=== PATIENT | female | born 1960 | race Caucasian/White ===

== ENCOUNTER 2024-01-19 12:13 | Emergency (ER) | payer OTHER, SELFPAY ==
[2024-01-19 12:38] VITALS: BP 112/82
[2024-01-19] MEDS: ADENOCARD 6 MG IV (12:41)
--- NOTE | 2024-01-19 12:44 | ED.GENMED ---
History of Present Illness
General
Chief Complaint: Heart Rate Problem
Source: patient
Exam Limitations: none
Time Seen by Provider: 01/19/24 12:30
Nursing documentation reviewed up to this point in time: agreed with
History of Present Illness
History of Present Illness:
63-year-old female with a past medical history of lung cancer, PE on Eliquis, SVT who presents to the emergency department for evaluation of palpitations. Patient reports that she was driving to lunch with her mother when she had abrupt onset of
palpitations/racing heart. She says that this occurred at around 11:30 AM. She drove herself to the emergency room to be evaluated. She does not have any chest pain. She denies any shortness of breath. She denies any other complaints. She says
this is identical to symptoms she had with prior episodes of SVT. Of note she was recently admitted at [facility]�was admitted for total of 1 week she says and discharged 2 weeks ago; this admission was for pulmonary embolism and she was
ultimately discharged on Eliquis and has been compliant. She reports that one of her presenting issues for this recent hospitalization was tachycardia and SVT. Today however she does not have any shortness of breath or chest pain, as above. Her
normal child welfare counselor is through the [facility] system.
Past History
Past History
ED Past Medical History: Cancer
ED Past Surgical History: Orthopedic and Other
Social History
Tobacco: Non-smoker
Alcohol: None
Drug: None
Personal: Single
Living: alone
Review of Systems
Review of Systems
All Other Systems: ROS reviewed and negative except as documented in HPI and ROS
Constitutional: Denies fever
Respiratory: Denies trouble breathing
Cardiac: Reports palpitations; Denies chest pain or syncope
ABD/GI: Denies abdominal pain, nausea or vomiting
: Denies flank pain
Musculoskeletal: Denies edema, neck pain or back pain
Neurological: Denies dizzy or headache
Phy Exam
Physical Exam
Physical Exam:
General: Awake, alert, oriented x3; anxious but nontoxic
Head: Normocephalic, atraumatic
Eyes: Conjunctiva normal
Throat: Airway intact, handling secretions
Neck: Trachea midline, no JVD
Lungs: Clear to auscultation bilaterally, no wheezing, rales, rhonchi
Heart: Tachycardia with ostensibly regular rhythm, no murmurs, gallops, or rubs appreciated within the limits of significant tachycardia
Abd: Soft, non distended, nontender
Neuro: No gross deficits
Skin: no rash
Extremities: No edema in extremities, equal pulses in all extremities
Scores
Heart Failure Risk
Heart Failure Risk Score: Not Applicable
Heart Score for Chest Pain Patients
STEMI patient?: Not applicable
Withdrawal Assessment of Alcohol
Withdrawal Assessment Completed?: Not applicable
Course
Orders/Labs/Results
Orders:
Orders
01/19/24
Electrocardiogram (*1) Stat
Reason for Study: Chest Pain
Comment: DONE NO ORDER ENTERED
01/19/24 12:14
Electrocardiogram (*1) Urgent
Reason for Study: Chest Pain
01/19/24 12:15
EKG- Treatment ONCE
01/19/24 12:31
Adenosine [Adenocard] 6 mg IV NOW STA
01/19/24 12:39
Complete Blood Count/With Diff Urgent
Comprehensive Metabolic Panel Urgent
Magnesium Urgent
01/19/24 13:21
Electrocardiogram (*1) Urgent
Reason for Study: Bradycardia / Tachycardia
EKG- Treatment ONCE
Abnormal Lab Results
01/19/24
12:39
MCHC 31.4 L g/dL
(33.0-37.0)
RDW 16.2 H %
(11.5-14.5)
Monocytes % 10.3 H %
(1.7-9.3)
Glucose 107 H mg/dl
(70-99)
Alkaline Phosphatase 144 H U/L
(38-126)
Albumin 3.2 L g/dl
(3.5-5.0)
01/19/24 12:39
01/19/24 12:39
Vital Signs
Initial and Last Documented VS:
Initial Vital Signs
Temp Pulse Resp Pulse Ox
36.9 C 180 18 98
01/19/24 12:28 01/19/24 12:28 01/19/24 12:28 01/19/24 12:28
Last Documented Vital Signs
Temp Pulse Resp BP Pulse Ox
36.9 C 80 18 98/59 98
01/19/24 12:28 01/19/24 14:31 01/19/24 14:31 01/19/24 14:31 01/19/24 14:31
MDM/Problems Addressed
Differential Diagnosis Includes:
SVT
MDM/Problems Addressed:
63-year-old female presents for evaluation of abrupt onset tachycardia consistent with her prior episodes of SVT. Vitals significant for tachycardia but otherwise normal; EKG on arrival confirms SVT with a heart rate in 180s. Exam as above. She
was immediately brought back to a room, placed on awake overnight monitor. IV access was established and labs were sent off including a CBC and a CMP, magnesium level. She was given 6 mg of IV adenosine and successfully converted to sinus rhythm. Still
mildly tachycardic after converting to sinus rhythm and EKG after adenosine did show QT prolongation, electrolytes pending and will repeat EKG as heart rate improves. Continue to monitor very closely.
Labs reviewed: CBC and CMP unremarkable. Repeat EKG shows sinus rhythm in the 80s, QTc normalized. Patient has been asymptomatic since receiving adenosine. Blood pressure somewhat soft but patient says that she always sits with a blood pressure
in the 90s�this is apparently her baseline. She is requesting discharge�she feels well. We did monitor for 90 minutes status post adenosine and she has maintained sinus rhythm persistently and has been persistently asymptomatic. Stable for
discharge at this point. She will follow-up with her child welfare counselor as an outpatient. Spoke about return precautions all questions answered.
Chronic conditions affecting care:
SVT
*Pulse Oximetry
Patient hypoxic: no
*EKG
Interpreted by ED Provider?: Yes
Heart Rate: 183
Rate: tachycardiac
Rhythm: SVT
[place]: normal axis
Interval: normal interval
QRS Pattern: normal QRS
Ischemia: non-specific ST changes
*Critical Care Note
Total Time (30-74mins, 75-104mins- exclusive of procedures): 30
comment:
Critical care statement: A total of 30 minutes of critical care time was provided for this patient. This includes management of unstable vital signs, evaluation of the patient at bedside, frequent reassessment, discussion with
consultants/hospitalist, and review of pertinent medical records. This time was separate from time utilized to perform any aforementioned documented procedures
Data Reviewed
Source: patient
ED Attending Note
-
Portions of this chart may have been created with voice recognition software.� Occasional wrong word or��sound alike� substitutions may have occurred due to the inherent limitations of voice recognition software.
Discharge Plan
Departure
Patient Disposition: Home (Routine Discharge)
Date of Disposition: 01/19/24
Time of Disposition: 14:08
Patient with high blood pressure during this ER visit?: No
Discharge Problem:
SVT (supraventricular tachycardia)
Instructions: Supraventricular tachycardia (SVT)
Prescriptions:
No Action
diphenhydramine HCl [Benadryl] 25 mg capsule
25 mg PO TID PRN (Reason: allergic reaction) Qty: 20 0RF
famotidine [Pepcid] 20 mg tablet
20 mg PO BID Qty: 20 0RF
prednisone 10 mg Tablet
See Rx Instructions .ROUTE .COMPLEX Qty: 30 0RF
Rx Instructions:
Take By Mouth:
40 mg daily x3 days, 30 mg daily x3 days,
20 mg daily x3 days, 10 mg daily x3 days.
Referrals:
Bharath Pandey DO [Family Provider] - Call in 1-3 days for appt
Activity Restrictions/Additional Instructions:
Thank you for visiting the Emergency Department at [facility].
1. Please schedule a follow up appointment as directed. Call first thing tomorrow morning to make an appointment.
2. If indicated, please take your medications as instructed and indicated on discharge paperwork.
3. If any of your symptoms do not improve, or persist, or become more severe within 6-12 hours, please return to the emergency department for further care.
4. Please return to the emergency department if you develop a headache, neck pain/stiffness, fever greater than 100.4F, chest pain, shortness of breath, persistent nausea, vomiting, slurred speech, difficulty walking, numbness/tingling, weakness,
signs of infection or any other symptoms that are worrisome to you.
Please call [phone] if you have any questions.
Interventions
Interventions:
*Risk Screen - Suicide Last Done: 01/19/24 12:28
*Neglect/Abuse Screening Last Done: 01/19/24 12:28
ED- Fall Risk Assessment Last Done: 01/19/24 12:37
ED- Cardiac Assessment Last Done: 01/19/24 12:37
ED- Pulmonary Assessment Last Done: 01/19/24 12:37
Discharge Date and Time
Print Language: AZERI
[2024-01-19 12:50] LABS: % Basophils 0.4 % (0-2); % Eosinophils 1.3 % (0-6); % Immature Granulocytes 0.2 % (0-0.5); % Lymphocytes 26.3 % (20.5-51.1); % Monocytes 10.3 % (1.7-9.3); % Neutrophils 61.5 % (42.2-75.2); Absolute Eosinophils 0.1 10^3/uL (0-0.7); Absolute Lymphocytes 1.5 10^3/uL (1.2-3.4); Absolute Monocytes 0.6 10^3/uL (0.1-0.6); Absolute Neutrophils 3.4 10^3/uL (1.4-6.5); Hematocrit 40.8 % (37.0-47.0); Hemoglobin 12.8 g/dL (12.0-16.0); Mean Corp Hgb Conc. 31.4 g/dL (33.0-37.0); Mean Corpuscular Hgb 27.1 pg (27.0-31.0); Mean Corpuscular Volume 86.3 fL (81.0-99.0); Mean Platelet Volume 10.1 fL (7.4-10.4); Nucleated Red Blood Cells % 0 %; Platelet Count 232 10^3/uL (130-400); Red Blood Cell Count 4.73 10^6/uL (4.20-5.40); Red Cell Dist. Width 16.2 % (11.5-14.5); White Blood Cell Count 5.6 10^3/uL (4.8-10.8)
[2024-01-19 13:00] VITALS: BP 92/63
[2024-01-19 13:16] LABS: ALT (SGPT) 20 U/L (0-35); AST (SGOT) 22 U/L (14-36); Albumin 3.2 g/dl (3.5-5.0); Alkaline Phosphatase 144 U/L (38-126); Blood Urea Nitrogen 14 mg/dl (7-17); Calcium 8.7 mg/dl (8.4-10.2); Carbon Dioxide 25 mmol/L (22-30); Chloride 106 mmol/L (98-107); Glucose 107 mg/dl (70-99); Magnesium 2.1 mg/dl (1.6-2.3); Potassium 3.6 mmol/L (3.5-5.1); Sodium 144 mmol/L (135-145); Total Bilirubin 0.2 mg/dl (0.2-1.3); Total Protein 6.5 g/dl (6.3-8.2); eGFR > 60.00
[2024-01-19 14:11] VITALS: BP 83/62
[2024-01-19 14:31] VITALS: BP 98/59
== END 2024-01-19 14:50 | disposition home or self-care (01) ==
LOC: EMR 12:13
PROVIDERS: EMERGENCY PHYSICIAN Emergency Medicine; FAMILY PHYSICIAN Family Medicine
DX: R00.2 Palpitations (principal); I47.10 Supraventricular tachycardia, unspecified; Z79.01 Long term (current) use of anticoagulants; Z85.118 Personal history of other malignant neoplasm of bronchus and lung
CPT/HCPCS: 99283; 96374; 80053; 83735; 85025; 93005; J0153

== ENCOUNTER 2024-02-23 15:52 | Emergency (ER) | payer OTHER, SELFPAY ==
[2024-02-23 15:58] VITALS: BP 132/83
--- NOTE | 2024-02-23 15:58 | ED.GENMED ---
ED Provider Triage
<Marija Dodd, SALES DEPARTMENT SUPERVISOR - Last Filed: 02/23/24 16:01>
-
Patient seen by provider in Triage?: Seen in Triage
Attestation: A medical screening examination has been initiated by a qualified medical provider. Based on the assessment performed at this time, it has been determined that an emergent medical condition may exist and the patient has been informed
that further medical evaluation and possible additional diagnostic testing may be needed.
HPI: 63 yo female here for rapid heart rate started at 3:15 p.m. Feels pressure in chest,
Was on Eliquis for PE Nov 2023, Stopped Eliquis on 02/20 for lung biopsy tomorrow.
GENERAL: Alert , in no apparent distress
EYE: No visual abnormalities.
ENT: No visible abnormalities.
LUNGS: No acute respiratory distress
NEUROLOGICAL: Alert and oriented
SKIN: Skin intact. No visible changes.
MUSCULOSKELETAL: Moving extremities normally
PSYCH: Normal and appropriate interaction.
This is a medical evaluation conducted in person to initiate diagnostic evaluation and provide initial therapeutics. Please see further documentation by the treating clinician.
History of Present Illness
<Marija Dodd, SALES DEPARTMENT SUPERVISOR - Last Filed: 02/23/24 16:01>
General
Chief Complaint: Heart Rate Problem
Time Seen by Provider: 02/23/24 16:09
<Aidan Rivera, DO - Last Filed: 02/23/24 23:29>
General
Source: patient
Exam Limitations: none
Nursing documentation reviewed up to this point in time: agreed with
History of Present Illness
History of Present Illness:
63-year-old female presents emergency room complaining of palpitations and midsternal chest pressure since 3:30 PM. She has a history of SVT, and this does feel similar.
Past History
<Marija Dodd, SALES DEPARTMENT SUPERVISOR - Last Filed: 02/23/24 16:01>
Past History
ED Past Medical History: Cancer
ED Past Surgical History: Orthopedic and Other
Social History
Tobacco: Non-smoker
Alcohol: None
Drug: None
Personal: Single
Living: alone
<Aidan Rivera, DO - Last Filed: 02/23/24 23:29>
Past History
ED Past Medical History: Arrthythmia (SVT)
Review of Systems
<Aidan Rivera, DO - Last Filed: 02/23/24 23:29>
Review of Systems
Allergies reviewed?: Yes
All Other Systems: Not applicable
Constitutional: Reports no symptoms
EENT: Reports no symptoms
Respiratory: Reports no symptoms
Cardiac: Reports palpitations
ABD/GI: Reports no symptoms
: Reports no symptoms
Musculoskeletal: Reports no symptoms
Skin: Reports no symptoms
Neurological: Reports no symptoms
Endocrine: Reports no symptoms
Hematologic/Lymphatic: Reports no symptoms
Psychiatric: Reports no symptoms
Phy Exam
<Aidan Rivera, DO - Last Filed: 02/23/24 23:29>
Physical Exam
Physical Exam:
Physical Exam
General: no apparent distress, not acutely ill
Neck: supple. no meningeal signs. normal posterior pharynx
Heart: s1/s2, tachycardia, no murmur. equal radial
pulses.
HEENT: Pupils equal round reactive to light, EOMI
Lungs: no acute respiratory distress. clear bilaterally
Abdomen: normal bowel sounds. not tender. no CVAT
Neuro: alert and oriented. no focal neurological deficits cranial nerves II through XII intact
Skin: no rash
Psychiatric: well kept. interactive and cooperative
Extremities: no edema. no calf tenderness. negative homans. good distal pulses
Course
<Marija Dodd, SALES DEPARTMENT SUPERVISOR - Last Filed: 02/23/24 16:01>
Orders/Labs/Results
Orders:
Orders
02/23/24 15:54
Electrocardiogram (*1) Urgent
Reason for Study: Chest Pain
EKG- Treatment ONCE
02/23/24 16:10
Adenosine [Adenocard] 18 mg .ROUTE .STK-MED ONE
02/23/24 16:15
Adenosine [Adenocard] 6 mg IV NOW STA
02/23/24 16:16
EKG [Electrocardiogram (*1)] Urgent
Reason for Study: Tachycardia
EKG- Treatment ONCE
02/23/24 16:21
IV Insert/Care/Rem.- Treatment PRN
02/23/24 16:23
Complete Blood Count/With Diff Urgent
Comprehensive Metabolic Panel Urgent
Magnesium Urgent
TSH Reflex To Free T4 Urgent
Abnormal Lab Results
02/23/24
16:23
MCHC 32.4 L g/dL
(33.0-37.0)
RDW 15.7 H %
(11.5-14.5)
Glucose 120 H mg/dl
(70-99)
Total Bilirubin < 0.1 L mg/dl
(0.2-1.3)
Alkaline Phosphatase 156 H U/L
(38-126)
Total Protein 6.2 L g/dl
(6.3-8.2)
Albumin 2.9 L g/dl
(3.5-5.0)
02/23/24 16:23
02/23/24 16:23
Vital Signs
Initial and Last Documented VS:
Initial Vital Signs
Temp Pulse Resp BP Pulse Ox
98.2 F 194 16 132/83 99
02/23/24 15:58 02/23/24 15:58 02/23/24 15:58 02/23/24 15:58 02/23/24 15:58
Last Documented Vital Signs
Temp Pulse Resp BP Pulse Ox
98.2 F 85 14 92/45 98
02/23/24 15:58 02/23/24 17:21 02/23/24 17:21 02/23/24 17:21 02/23/24 17:21
<Aidan Rivera, DO - Last Filed: 02/23/24 23:29>
Orders/Labs/Results
Orders:
Orders
02/23/24 15:54
Electrocardiogram (*1) Urgent
Reason for Study: Chest Pain
EKG- Treatment ONCE
02/23/24 16:10
Adenosine [Adenocard] 18 mg .ROUTE .STK-MED ONE
02/23/24 16:15
Adenosine [Adenocard] 6 mg IV NOW STA
02/23/24 16:16
EKG [Electrocardiogram (*1)] Urgent
Reason for Study: Tachycardia
EKG- Treatment ONCE
02/23/24 16:21
IV Insert/Care/Rem.- Treatment PRN
02/23/24 16:23
Complete Blood Count/With Diff Urgent
Comprehensive Metabolic Panel Urgent
Magnesium Urgent
TSH Reflex To Free T4 Urgent
Abnormal Lab Results
02/23/24
16:23
MCHC 32.4 L g/dL
(33.0-37.0)
RDW 15.7 H %
(11.5-14.5)
Glucose 120 H mg/dl
(70-99)
Total Bilirubin < 0.1 L mg/dl
(0.2-1.3)
Alkaline Phosphatase 156 H U/L
(38-126)
Total Protein 6.2 L g/dl
(6.3-8.2)
Albumin 2.9 L g/dl
(3.5-5.0)
02/23/24 16:23
02/23/24 16:23
Vital Signs
Initial and Last Documented VS:
Initial Vital Signs
Temp Pulse Resp BP Pulse Ox
98.2 F 194 16 132/83 99
02/23/24 15:58 02/23/24 15:58 02/23/24 15:58 02/23/24 15:58 02/23/24 15:58
Last Documented Vital Signs
Temp Pulse Resp BP Pulse Ox
98.2 F 85 14 92/45 98
02/23/24 15:58 02/23/24 17:21 02/23/24 17:21 02/23/24 17:21 02/23/24 17:21
<Aidan Rivera, DO - Last Filed: 02/23/24 23:29>
MDM/Problems Addressed
Differential Diagnosis Includes:
SVT, atrial fibrillation
MDM/Problems Addressed:
63-year-old female with SVT, resolved after IV adenosine. Will discharge to follow-up with cardiology. Return precautions given.
Chronic conditions affecting care: Arrhythmia
Acute Exacerbation and/or Progression of Chronic Illness: Arrhythmia
<Aidan Rivera, DO - Last Filed: 02/23/24 23:29>
*Pulse Oximetry
Patient hypoxic: no
*EKG
Interpreted by ED Provider?: Yes
EKG Intrepretation Date: 02/23/24
EKG Intrepretation Time: 15:55
Interpretation: abnormal
Comparison EKG: changes noted
Heart Rate: 175
Rate: tachycardiac
Rhythm: SVT
[place]: normal axis
Interval: normal interval
QRS Pattern: normal QRS
Ischemia: no ischemia
*[employer] Manager Architect Interpretation
Rate: tachycardiac
Interpretation: abnormal
Heart Rate: 188
Rhythm: SVT
*Critical Care Note
Total Time (30-74mins, 75-104mins- exclusive of procedures): 30
comment:
Critical care statement: A total of 30 minutes of critical care time was provided for this patient. This includes management of unstable vital signs, evaluation of the patient at bedside, reviewing the patient's pertinent medical records, discussion
with consultants, review of old EKGs and review of pertinent medical records. This time with separate from time utilized to perform the aforementioned documented procedures
<Aidan Rivera DO - Last Filed: 02/23/24 23:29>
Patient Management
Social determinants of health affecting care: Living situation
Escalation/DeEscalation of care consider admission/obs:
Admit not indicated
ED Attending Note
<Marija Dodd NP - Last Filed: 02/23/24 16:01>
-
Portions of this chart may have been created with voice recognition software.� Occasional wrong word or��sound alike� substitutions may have occurred due to the inherent limitations of voice recognition software.
Discharge Plan
Departure
Patient Disposition: Home (Routine Discharge)
Date of Disposition: 02/23/24
Time of Disposition: 17:12
Patient with high blood pressure during this ER visit?: Yes
Condition: Good
Discharge Problem:
SVT (supraventricular tachycardia)
Instructions: Supraventricular tachycardia (SVT), BLOOD PRESSURE
Prescriptions:
No Action
diphenhydramine HCl [Benadryl] 25 mg capsule
25 mg PO TID PRN (Reason: allergic reaction) Qty: 20 0RF
famotidine [Pepcid] 20 mg tablet
20 mg PO BID Qty: 20 0RF
prednisone 10 mg Tablet
See Rx Instructions .ROUTE .COMPLEX Qty: 30 0RF
Rx Instructions:
Take By Mouth:
40 mg daily x3 days, 30 mg daily x3 days,
20 mg daily x3 days, 10 mg daily x3 days.
Activity Restrictions/Additional Instructions:
Follow-up with your battery container finishing hand. Return for any concerns.
Interventions
Interventions:
*Risk Screen - Suicide Last Done: 02/23/24 15:58
*General Assessment Last Done: 02/23/24 16:09
*Neglect/Abuse Screening Last Done: 02/23/24 15:58
ED- Fall Risk Assessment Last Done: 02/23/24 17:40
*ED COVID-19 Vaccine History Last Done: 02/23/24 16:09
*Nursing Disposition Last Done: 02/23/24 17:40
ED- Cardiac Assessment Last Done: 02/23/24 16:06
ED- Pulmonary Assessment Last Done: 02/23/24 16:06
Discharge Date and Time
Discharge Date/Time: 02/23/24 17:42
Print Language: MALAY
[2024-02-23 16:11] VITALS: BP 100/72
[2024-02-23] MEDS: ADENOCARD 6 MG IV (16:13)
[2024-02-23 16:36] LABS: % Basophils 0.3 % (0-2); % Eosinophils 1.2 % (0-6); % Immature Granulocytes 0.3 % (0-0.5); % Lymphocytes 20.6 % (20.5-51.1); % Monocytes 8.5 % (1.7-9.3); % Neutrophils 69.1 % (42.2-75.2); Absolute Eosinophils 0.1 10^3/uL (0-0.7); Absolute Lymphocytes 1.3 10^3/uL (1.2-3.4); Absolute Monocytes 0.6 10^3/uL (0.1-0.6); Absolute Neutrophils 4.5 10^3/uL (1.4-6.5); Hematocrit 37.6 % (37.0-47.0); Hemoglobin 12.2 g/dL (12.0-16.0); Mean Corp Hgb Conc. 32.4 g/dL (33.0-37.0); Mean Corpuscular Hgb 28.2 pg (27.0-31.0); Mean Platelet Volume 9.8 fL (7.4-10.4); Nucleated Red Blood Cells % 0 %; Platelet Count 202 10^3/uL (130-400); Red Blood Cell Count 4.32 10^6/uL (4.20-5.40); Red Cell Dist. Width 15.7 % (11.5-14.5); White Blood Cell Count 6.5 10^3/uL (4.8-10.8)
[2024-02-23 16:48] LABS: ALT (SGPT) 22 U/L (0-35); AST (SGOT) 26 U/L (14-36); Albumin 2.9 g/dl (3.5-5.0); Alkaline Phosphatase 156 U/L (38-126); Blood Urea Nitrogen 15 mg/dl (7-17); Calcium 8.4 mg/dl (8.4-10.2); Carbon Dioxide 23 mmol/L (22-30); Chloride 106 mmol/L (98-107); Glucose 120 mg/dl (70-99); Potassium 3.8 mmol/L (3.5-5.1); Sodium 141 mmol/L (135-145); Total Bilirubin < 0.1 mg/dl (0.2-1.3); Total Protein 6.2 g/dl (6.3-8.2); eGFR > 60.00
[2024-02-23 17:21] VITALS: BP 92/45
== END 2024-02-23 17:42 | disposition home or self-care (01) ==
LOC: EMR 15:52
PROVIDERS: EMERGENCY PHYSICIAN Emergency Medicine; FAMILY PHYSICIAN Family Medicine
DX: I47.10 Supraventricular tachycardia, unspecified (principal); Z86.711 Personal history of pulmonary embolism; Z79.01 Long term (current) use of anticoagulants
CPT/HCPCS: 96374; 99291; 80053; 83735; 84443; 85025; 93005; J0153